=== PATIENT | male | born 1945 | race Two or more races ===

== ENCOUNTER 2016-08-20 17:26 | Emergency (ER) | payer OTHER ==
[~2016-08-20] VITALS: Ht 182.9 cm; Wt 81.6 kg
--- NOTE | 2016-08-20 21:06 | NUR ---
PT OK TO DISCHARGE PER EVELIN BILL OF LADING CLERK. Patient discharged to home in stable condition. Written and verbal after care instructions given. Patient verbalizes understanding of instruction.Patient is awake and alert to self, day, and place. PT ambulatory with a steady gait
[2016-08-20 21:51] VITALS: BP 128/80
== END 2016-08-20 21:10 | disposition home or self-care (01) ==
LOC: ER 17:27
DX: S90.122A Contusion of left lesser toe(s) without damage to nail, initial encounter (principal); M10.9 Gout, unspecified; I10 Essential (primary) hypertension; X58.XXXA Exposure to other specified factors, initial encounter; Y93.89 Activity, other specified; Y92.89 Other specified places as the place of occurrence of the external cause; Y99.9 Unspecified external cause status
CPT/HCPCS: 73630; 99284; A4606; Z7610

== ENCOUNTER 2018-05-08 23:37 | Emergency (ER) | payer OTHER, MEDICAID ==
[~2018-05-08] VITALS: Ht 188 cm; Wt 99.8 kg
--- NOTE | 2018-05-08 23:50 | NUR ---
Note undone in EDM - 05/09/18 at 0035 by POWER PT BIBRA FROM HOME AFTER UNWITNESSED SYNCOPE EPISODE. PER RA, PT WAS FOUND ON FLOOR BY FAMILY. NO VISIBLE TRAUMA NOTED. PT DENIES SOB, CHEST PAIN, ABDOMINAL PAIN, N/V/D. PT IS AAOX3. RESPIRATIONS EVEN AND UNLABORED. SKIN WARM AND INTACT. VITAL SIGNS STABLE. PT PLACED ON CONTINUOUS PRODUCTION CHECKER, WILL CONTINUE TO MONITOR.
--- NOTE | 2018-05-08 23:50 | NUR ---
PT BIBRA FROM HOME AFTER UNWITNESSED SYNCOPE EPISODE. PER RA, PT WAS FOUND ON FLOOR BY FAMILY. NO VISIBLE TRAUMA NOTED. PT DENIES SOB, CHEST PAIN, ABDOMINAL PAIN, N/V/D. PT IS AAOX1. RESPIRATIONS EVEN AND UNLABORED. SKIN WARM AND INTACT. VITAL SIGNS STABLE. PT PLACED ON CONTINUOUS BEAM DEPARTMENT SUPERVISOR, WILL CONTINUE TO MONITOR.
--- NOTE | 2018-05-08 23:58 | NUR ---
EVENT SECURITY OFFICER AT BEDSIDE FOR BLOOD DRAW
[2018-05-09] MEDS ORDERED: IV NS 0.9% 1,000 ML BAG IV ONE
[2018-05-09 00:15] LABS: BASOPHILS % (AUTO) 0.4 % (0.0-2.0); EOSINOPHILS % (AUTO) 2.8 % (0.0-6.0); HEMATOCRIT 46 % (39-51); LYMPHOCYTES # (AUTO) 0.7 /CMM (0.8-4.8); LYMPHOCYTES % (AUTO) 9.3 % (20.0-44.0); MEAN CORPUSCULAR HGB CONC 33 g/dl (31.0-36.0); MEAN CORPUSCULAR VOLUME 90 fL (80-96); MONOCYTES # (AUTO) 0.5 /CMM (0.1-1.30); MONOCYTES % (AUTO) 6.6 % (2.0-12.0); NEUTROPHILS # (AUTO) 6.3 /CMM (1.8-8.9); NEUTROPHILS % (AUTO) 80.9 % (43.0-81.0); PLATELET COUNT (AUTO) 209 /CMM (150-450); RED BLOOD CELL COUNT(AUTO) 5.07 MIL/uL (4.5-6.0); WHITE BLOOD COUNT (AUTO) 7.8 K/uL (4.3-11.0)
--- NOTE | 2018-05-09 00:21 | NUR ---
PT UNABLE TO PROVIDE URINE AT THIS TIME. MD CORBIN
--- NOTE | 2018-05-09 00:24 | NUR ---
PT BROUGHT BY RADIOLOGY FOR CT
[2018-05-09 00:29] LABS: CALCIUM, SERUM 8.5 mg/dL (8.5-10.1); CARBON DIOXIDE 25 mmol/L (21-32); CHLORIDE 105 mmol/L (98-107); CREATININE 1.3 mg/dL (0.6-1.3); GLUCOSE 105 mg/dL (74-106); POTASSIUM 3.8 mmol/L (3.5-5.1); SODIUM SERUM 140 mmol/L (136-145); UREA NITROGEN, BLOOD 17 mg/dL (7-18)
[2018-05-09 00:34] LABS: ALANINE AMINOTRANSFERASE 31 U/L (12-78); ALBUMIN 3.3 g/dL (3.4-5.0); ALKALINE PHOSPHATASE 65 U/L (46-116); ASPARTATE AMINOTRANSFERASE 15 U/L (15-37); BILIRUBIN,DIRECT 0.1 mg/dL (0.0-0.2); TOTAL PROTEIN, SERUM 6.4 g/dL (6.4-8.2)
--- NOTE | 2018-05-09 00:48 | NUR ---
PT RETURNED FROM CT
--- NOTE | 2018-05-09 00:50 | NUR ---
URINE COLLECTED CALLED LAB FOR SAND SYSTEM OPERATOR
[2018-05-09 01:20] LABS: APPEARANCE,URINE CLEAR (CLEAR); BILIRUBIN,URINE NEGATIVE (NEGATIVE); BLOOD, URINE NEGATIVE Ery/uL (NEGATIVE); COLOR,URINE YELLOW (YELLOW); KETONES,URINE NEGATIVE (NEGATIVE); LEUKOCYTE ESTERASE ,URINE NEGATIVE (NEGATIVE); NITRITE, URINE NEGATIVE (NEGATIVE); PROTEIN,URINE TRACE mg/dl (NEGATIVE); UGLUCOSE NEGATIVE (NEGATIVE); UROBILINOGEN,URINE 0.2 EU/dL (0.2)
[2018-05-09 01:27] LABS: BACTERIA,URINE Few /HPF (None Seen); MUCUS,URINE Few /LPF (None Seen); RBC,URINE 0-2 /HPF (0-2); SQUAMOUS EPITHELIAL CELL,UR Rare /HPF (None Seen)
--- NOTE | 2018-05-09 02:03 | NUR ---
RECEIVED CALL FROM [facility] AND WAS INFORMED THAT THIS PT WAS ACCEPTED AT [facility] UNDER DR. HORNE. NUMBER FOR REPORT IS [phone] ETA FOR TRANSPORT: PRN -- [id number]
[2018-05-09 02:20] VITALS: BP 119/72
--- NOTE | 2018-05-09 02:22 | NUR ---
GAVE REPORT TO FILIBERTO BOWLES FOR HAIM
--- NOTE | 2018-05-09 03:14 | NUR ---
GAVE REPORT TO CLAUIDA RODRIGUEZ RN FOR HAIM
== END 2018-05-09 03:28 | disposition short-term general hospital (02) ==
LOC: ER 23:42
DX: R55 Syncope and collapse (principal); I10 Essential (primary) hypertension
CPT/HCPCS: 36415; 70450-TC; 71045-TC; 80048-TC; 80076-TC; 81000-TC; 82962-TC; 84484-TC; 85025-TC; 85730-TC; 86850-TC; A4606; J7030; Z7610

== ENCOUNTER 2018-06-22 19:49 | Emergency (ER) | payer OTHER, MEDICAID ==
[~2018-06-22] VITALS: Ht 188 cm; Wt 95.3 kg
--- NOTE | 2018-06-22 20:00 | NUR ---
[id number] FROM HOME C/O N/V X 1 HOUR. PATIENT BASELINE AAOX1. PT NOTED VOMITTING BLACK CONTENTS WHILE BEING TRIAGED. 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 PT NOTED TO BE INCONTINENT. RR EVEN AND UNLABORED. PT PLACED ON AUTOMATIC PATTERN EDGER AND POX. PT SAFETY AND COMFORT MEASURES IN PLACE. MD BEDSIDE FOR EVAL. BEDSIDE WITH PT.
[2018-06-22] MEDS ORDERED: ONDANSETRON HCL/PF 4 MG/2 ML VIAL ONE (20:22)
[2018-06-22] MEDS ORDERED: HYDROMORPHONE INJ 0.5 MG/0.5 ML SYRINGE ONE (20:23)
[2018-06-22] MEDS ORDERED: IV NS 0.9% 1,000 ML BAG IV ONE (20:30)
[2018-06-22] MEDS ORDERED: ONDANSETRON HCL/PF 4 MG/2 ML VIAL IVP ONE (20:30)
[2018-06-22] MEDS ORDERED: HYDROMORPHONE INJ 2 MG/ML DISP.SYRIN IV ONE (20:30)
[2018-06-22 20:50] LABS: BASOPHILS % (AUTO) 0.1 % (0.0-2.0); EOSINOPHILS % (AUTO) 0.1 % (0.0-6.0); HEMATOCRIT 43 % (39-51); HEMOGLOBIN 14.2 g/dL (13.5-17.5); LYMPHOCYTES # (AUTO) 0.1 /CMM (0.8-4.8); LYMPHOCYTES % (AUTO) 1.9 % (20.0-44.0); MEAN CORPUSCULAR HGB CONC 33 g/dl (31.0-36.0); MEAN CORPUSCULAR VOLUME 90 fL (80-96); MONOCYTES % (AUTO) 0.6 % (2.0-12.0); NEUTROPHILS # (AUTO) 4.2 /CMM (1.8-8.9); NEUTROPHILS % (AUTO) 97.3 % (43.0-81.0); PLATELET COUNT (AUTO) 201 /CMM (150-450); RED BLOOD CELL COUNT(AUTO) 4.74 MIL/uL (4.5-6.0); WHITE BLOOD COUNT (AUTO) 4.3 K/uL (4.3-11.0)
[2018-06-22 20:52] LABS: APPEARANCE,URINE Slightly Cloudy (CLEAR); BILIRUBIN,URINE Negative (NEGATIVE); BLOOD, URINE Large Ery/uL (NEGATIVE); COLOR,URINE Yellow (YELLOW); KETONES,URINE Trace (NEGATIVE); LEUKOCYTE ESTERASE ,URINE Small (NEGATIVE); NITRITE, URINE Positive (NEGATIVE); PH,URINE 5.5 (5.0-8.0); PROTEIN,URINE 30 mg/dl (NEGATIVE); UGLUCOSE Negative (NEGATIVE); UROBILINOGEN,URINE 0.2 EU/dL (0.2)
[2018-06-22 21:01] LABS: CALCIUM, SERUM 8.8 mg/dL (8.5-10.1); CARBON DIOXIDE 19 mmol/L (21-32); CHLORIDE 104 mmol/L (98-107); CREATININE 1.9 mg/dL (0.6-1.3); GLUCOSE 146 mg/dL (74-106); POTASSIUM 3.6 mmol/L (3.5-5.1); SODIUM SERUM 136 mmol/L (136-145); UREA NITROGEN, BLOOD 19 mg/dL (7-18)
[2018-06-22 21:04] LABS: BACTERIA,URINE 3+ /HPF (None Seen); RBC,URINE 21-50 /HPF (0-2); SQUAMOUS EPITHELIAL CELL,UR Few /HPF (None Seen)
[2018-06-22 21:07] LABS: ALANINE AMINOTRANSFERASE 24 U/L (12-78); ALBUMIN 3.3 g/dL (3.4-5.0); ALKALINE PHOSPHATASE 63 U/L (46-116); ASPARTATE AMINOTRANSFERASE 21 U/L (15-37); BILIRUBIN,DIRECT 0.2 mg/dL (0.0-0.2); BILIRUBIN,TOTAL 1.6 mg/dL (0.2-1.0); LIPASE 132 U/L (73-393); TOTAL PROTEIN, SERUM 6.4 g/dL (6.4-8.2)
--- NOTE | 2018-06-22 21:09 | NUR ---
PT TO CT
--- NOTE | 2018-06-22 21:20 | NUR ---
PT BACK FROM CT
[2018-06-22] MEDS ORDERED: PIPERACILLIN /TAZOBACTAM 3.375 G in IV D5W 50 ML IV ONE (21:30)
[2018-06-22] MEDS ORDERED: PIPERACILLIN /TAZOBACTAM 3.375 G VIAL IV ONE (21:42)
--- NOTE | 2018-06-22 21:58 | NUR ---
CALLED [facility] FOR TRANSFER
--- NOTE | 2018-06-22 23:05 | NUR ---
Patient is resting comfortably in bed with eyes closed. Easily aroused. VSS
[2018-06-22] MEDS ORDERED: KETOROLAC TROMETHAMINE 15 MG/ML VIAL ONE (23:41)
--- NOTE | 2018-06-22 23:44 | NUR ---
VERBAL ORDER RECEIVED BY DR. MALIN FOR TORADOL 15MG IVP NOW.
--- NOTE | 2018-06-22 23:53 | NUR ---
PT ACCEPTED TO [facility] BY DR RIOS ROOM 4303-A ALS NAFISA [id number] # FOR REPORT: [phone]
--- NOTE | 2018-06-22 23:58 | NUR ---
REPORT GIVEN TO [facility] WILBUR FERRER FOR [facility]IM
--- NOTE | 2018-06-23 00:31 | NUR ---
REPORT GIVEN TO EMS CREW FOR [facility]IM. PT BEING LOADED ONTO [employer] Sp[facility] W/ NO S/S OF DISTRESS NOTED.
[2018-06-23 00:32] VITALS: BP 119/67
--- NOTE | 2018-06-23 00:36 | NUR ---
Patient Tranfers to outside Facility Physician:BLANCA Location:[facility], ROOM 4303-A REPORT GIVEN TO WILBUR FERRER FOR HAIM
== END 2018-06-23 00:36 | disposition short-term general hospital (02) ==
LOC: ER 19:50
DX: N13.2 Hydronephrosis with renal and ureteral calculous obstruction (principal); N28.9 Disorder of kidney and ureter, unspecified; I10 Essential (primary) hypertension; G30.9 Alzheimer's disease, unspecified; F02.80 Dementia in other diseases classified elsewhere, unspecified severity, without behavioral disturbance, psychotic disturbance, mood disturbance, and anxiety
CPT/HCPCS: 36415; 71045-TC; 80048-TC; 80076-TC; 81000-TC; 83690-TC; 85025-TC; 85730-TC; 87086-TC; 87186-TC; J1885; J2405; J2543; J7030; J7060

== ENCOUNTER 2018-07-29 22:59 | Emergency (ER) | payer OTHER, MEDICAID ==
[~2018-07-29] VITALS: Ht 172.7 cm; Wt 83.9 kg
--- NOTE | 2018-07-29 23:20 | NUR ---
PT BIBRA FROM HOME S/P [facility]. PER , PT WAS SITTING ON EDGE OF BED FROM ABDOMINAL PAIN AND FELL OVER. UNSURE KO. PT DENIES SOB, CHEST PAIN, N/V/D, HEADACHE. PT AAOX1. RESPIRATIONS EVEN AND UNLABORED. SKIN INTACT. VITAL SIGNS STABLE. NO ACUTE DISTRESS NOTED AT THIS TIME. PLACED IN GOWN AND ON MONITOR
--- NOTE | 2018-07-29 23:35 | NUR ---
MD AT BEDSIDE FOR EVALUATION
--- NOTE | 2018-07-30 00:30 | NUR ---
URINE COLLECTED AND SENT TO LAB
[2018-07-30 00:35] LABS: APPEARANCE,URINE Cloudy (CLEAR); BILIRUBIN,URINE Negative (NEGATIVE); BLOOD, URINE Large Ery/uL (NEGATIVE); COLOR,URINE Yellow (YELLOW); KETONES,URINE Negative (NEGATIVE); LEUKOCYTE ESTERASE ,URINE Large (NEGATIVE); NITRITE, URINE Negative (NEGATIVE); PROTEIN,URINE >=300 mg/dl (NEGATIVE); UGLUCOSE Negative (NEGATIVE); UROBILINOGEN,URINE 0.2 EU/dL (0.2)
[2018-07-30 00:52] LABS: BACTERIA,URINE 4+ /HPF (None Seen); RBC,URINE 21-50 /HPF (0-2); SQUAMOUS EPITHELIAL CELL,UR Few /HPF (None Seen); WBC,URINE 81-100 /HPF (0-3)
[2018-07-30] MEDS ORDERED: CIPROFLOXACIN HCL 500 MG TABLET ONE (01:05)
--- NOTE | 2018-07-30 01:25 | NUR ---
Patient discharged to home in stable condition. Written and verbal after care instructions given. Patient verbalizes understanding of instruction. Pt ambulatory with a steady gait, left with
[2018-07-30 01:26] VITALS: BP 134/79
[2018-07-30] MEDS ORDERED: CIPROFLOXACIN HCL 500 MG TABLET PO ONE (01:30)
[2018-07-30] MEDS ORDERED: AMLO2.5T4 PO (15:49)
[2018-07-30] MEDS ORDERED: QUET25TA PO (15:49)
[2018-07-30] MEDS ORDERED: DONE5TAB34 PO (15:49)
[2018-07-30] MEDS ORDERED: ATOR20TA PO (15:49)
[2018-07-30] MEDS ORDERED: TRAZ-214 PO (15:49)
[2018-07-30] MEDS ORDERED: CIPR500T5 PO (15:49)
== END 2018-07-30 01:27 | disposition home or self-care (01) ==
LOC: ER 23:00
DX: N39.0 Urinary tract infection, site not specified (principal); G30.9 Alzheimer's disease, unspecified; I10 Essential (primary) hypertension; Z87.442 Personal history of urinary calculi
CPT/HCPCS: 81001; 87077; 87086; 87186; 99283; A4606; 81000-TC

== ENCOUNTER 2018-07-30 14:21 | Emergency (ER) | payer OTHER, MEDICAID ==
[~2018-07-30] VITALS: Ht 172.7 cm; Wt 84.4 kg
--- NOTE | 2018-07-30 14:32 | NUR ---
DR MCGREGOR AT BEDSIDE
[2018-07-30] MEDS ORDERED: HALOPERIDOL LACTATE INJ 5 MG/ML VIAL ONE (14:34)
[2018-07-30] MEDS ORDERED: HALOPERIDOL LACTATE INJ 5 MG/ML VIAL IM ONE (15:00)
[2018-07-30 15:14] LABS: BASOPHILS % (AUTO) 0.4 % (0.0-2.0); EOSINOPHILS % (AUTO) 1.6 % (0.0-6.0); HEMATOCRIT 37 % (39-51); HEMOGLOBIN 12.4 g/dL (13.5-17.5); LYMPHOCYTES # (AUTO) 0.8 /CMM (0.8-4.8); LYMPHOCYTES % (AUTO) 7.9 % (20.0-44.0); MEAN CORPUSCULAR HGB CONC 33 g/dl (31.0-36.0); MEAN CORPUSCULAR VOLUME 89 fL (80-96); MONOCYTES # (AUTO) 0.9 /CMM (0.1-1.30); MONOCYTES % (AUTO) 8.7 % (2.0-12.0); NEUTROPHILS # (AUTO) 8.4 /CMM (1.8-8.9); NEUTROPHILS % (AUTO) 81.4 % (43.0-81.0); PLATELET COUNT (AUTO) 282 /CMM (150-450); WHITE BLOOD COUNT (AUTO) 10.4 K/uL (4.3-11.0)
[2018-07-30 15:19] LABS: CALCIUM, SERUM 8.6 mg/dL (8.5-10.1); CARBON DIOXIDE 22 mmol/L (21-32); CHLORIDE 104 mmol/L (98-107); CREATININE 1.3 mg/dL (0.6-1.3); GLUCOSE 102 mg/dL (74-106); POTASSIUM 3.6 mmol/L (3.5-5.1); SODIUM SERUM 136 mmol/L (136-145); UREA NITROGEN, BLOOD 19 mg/dL (7-18)
[2018-07-30 15:25] LABS: ALANINE AMINOTRANSFERASE 21 U/L (12-78); ALBUMIN 2.8 g/dL (3.4-5.0); ALKALINE PHOSPHATASE 63 U/L (46-116); ASPARTATE AMINOTRANSFERASE 18 U/L (15-37); BILIRUBIN,DIRECT 0.3 mg/dL (0.0-0.2); BILIRUBIN,TOTAL 2.1 mg/dL (0.2-1.0); LIPASE 138 U/L (73-393); TOTAL PROTEIN, SERUM 6.9 g/dL (6.4-8.2)
[2018-07-30] MEDS ORDERED: QUET25TA PO (15:49)
[2018-07-30] MEDS ORDERED: DONE5TAB34 PO (15:49)
[2018-07-30] MEDS ORDERED: AMLO2.5T4 PO (15:49)
[2018-07-30] MEDS ORDERED: TRAZ-214 PO (15:49)
[2018-07-30] MEDS ORDERED: ATOR20TA PO (15:49)
[2018-07-30] MEDS ORDERED: CIPR500T5 PO (15:49)
--- NOTE | 2018-07-30 16:30 | NUR ---
CALLED [facility], PRESENTED PT, AWAITING CALLBACK FROM [facility]
--- NOTE | 2018-07-30 17:54 | NUR ---
CALLED FOR FOOD TRAY
--- NOTE | 2018-07-30 18:24 | NUR ---
RECEIVED CALL FROM [facility]. PT ACCEPTED TO [facility] BY DR. Natalie ATWOOD, ROOM 4304, NUMBER TO GIVE REPORT IS [phone]
--- NOTE | 2018-07-30 19:23 | NUR ---
REPORT GIVEN TO HUNTER JARRETT AT [facility] FOR [facility]
--- NOTE | 2018-07-30 19:25 | NUR ---
PT LEFT VIA [facility]ANCE ARRANGED BY [place]; PT LEFT IN STABLE CONDTION; VSS, NAD NOTED.
[2018-07-30 19:27] VITALS: BP 130/75
== END 2018-07-30 19:29 | disposition short-term general hospital (02) ==
LOC: ER 14:24
DX: N39.0 Urinary tract infection, site not specified (principal); R45.1 Restlessness and agitation; J90 Pleural effusion, not elsewhere classified; I10 Essential (primary) hypertension; G30.9 Alzheimer's disease, unspecified; F02.80 Dementia in other diseases classified elsewhere, unspecified severity, without behavioral disturbance, psychotic disturbance, mood disturbance, and anxiety; R94.31 Abnormal electrocardiogram [ECG] [EKG]; Z87.442 Personal history of urinary calculi
CPT/HCPCS: 36415; 70450; 71045; 74176; 80048; 80076; 83690; 84484; 85025; 85730; 87040; 93005; 96372; 99285; A4606; J1630

== ENCOUNTER 2018-08-21 04:48 | Emergency (ER) | payer OTHER, MEDICAID ==
[~2018-08-21] VITALS: Ht 172.7 cm; Wt 88.9 kg
[~2018-08-21 04:48] MED LIST: AMLO2.5T4 PO; ATOR20TA PO; CIPR500T5 PO; DONE5TAB34 PO; QUET25TA PO; TRAZ-214 PO
--- NOTE | 2018-08-21 04:56 | NUR ---
PT BIBRA FROM HOME C/O FEVER X2 DAYS. UNKNOWN TMAX. +NONPRODUCTIVE COUGH. RECENTLY FINISHED 2WEEK COURSE OF ANTIBIOTIC FOR PNA AND UTI X1 WEEK AGO. NAD NOTED. RESP EVEN AND UNLABORED. PT DENIES PAIN AT THIS TIME. AT BEDSIDE. PT ON MONITOR IN BED 10. WILL CONTINUE TO MONITOR.
[2018-08-21 05:00] VITALS: BP 128/73
--- NOTE | 2018-08-21 05:12 | NUR ---
RADIOLOGY AT BEDSIDE FOR CXR
--- NOTE | 2018-08-21 05:22 | NUR ---
URINE COLLECTED AND SENT TO LAB
[2018-08-21 05:27] LABS: APPEARANCE,URINE Clear (CLEAR); BILIRUBIN,URINE Negative (NEGATIVE); BLOOD, URINE Moderate Ery/uL (NEGATIVE); COLOR,URINE Yellow (YELLOW); KETONES,URINE Negative (NEGATIVE); LEUKOCYTE ESTERASE ,URINE Trace (NEGATIVE); NITRITE, URINE Negative (NEGATIVE); PH,URINE 5.5 (5.0-8.0); PROTEIN,URINE 30 mg/dl (NEGATIVE); UGLUCOSE Negative (NEGATIVE); UROBILINOGEN,URINE 0.2 EU/dL (0.2)
[2018-08-21 05:45] LABS: BACTERIA,URINE Few /HPF (None Seen); RBC,URINE TOO NUMEROUS TO COUN /HPF (0-2); SQUAMOUS EPITHELIAL CELL,UR Rare /HPF (None Seen); WBC,URINE TOO NUMEROUS TO COUN /HPF (0-3)
--- NOTE | 2018-08-21 05:45 | NUR ---
Patient discharged to home in stable condition. Written and verbal after care instructions given. Patient verbalizes understanding of instruction. PT AMBULATORY WITH STEADY GAIT ACCOMPANIED BY .
== END 2018-08-21 07:25 | disposition home or self-care (01) ==
LOC: ER 04:48
DX: R05 Cough (principal); G30.9 Alzheimer's disease, unspecified; I10 Essential (primary) hypertension; Z87.442 Personal history of urinary calculi
CPT/HCPCS: 71045-TC; 81000-TC; 87086-TC

== ENCOUNTER 2019-04-18 08:03 | Emergency (ER) | payer OTHER, MEDICAID ==
[~2019-04-18] VITALS: Ht 185.4 cm; Wt 103.9 kg
--- NOTE | 2019-04-18 08:05 | NUR ---
BIBRA 887 FROM HOME C/O GEN WEAKNESS, UNWITNESSED GLF. LAST KNOWN WELL IS 1AM, PT IS AAOX2, NOT IN RESPIRATORY DISTRESS, HOOKED TO MONITOR, KEPT RESTED AND COMFORTABLE, WILL CONTINUE TO MONITOR.
--- NOTE | 2019-04-18 08:10 | NUR ---
SEEN AND EXAMINED BY .
[2019-04-18] MEDS ORDERED: IOHEXOL-350 100 ML VIAL IV ONE (08:15)
[2019-04-18] MEDS ORDERED: CT SWABBABLE VALVE TRANS SET 1 EA INFUS.SET MC ONE (08:15)
[2019-04-18] MEDS ORDERED: IV NS 0.9% 250 ML IV ONE (08:15)
--- NOTE | 2019-04-18 08:15 | NUR ---
IV LINE ESTABLISHED, G18 R AC.
--- NOTE | 2019-04-18 08:16 | NUR ---
PT IS WHEELED TO CT SCAN VIA [facility].
--- NOTE | 2019-04-18 08:17 | NUR ---
CODE STROKE ACTIVATED BY DR. CASTILLO [facility] NOTIFIED DR. CALL TELENEUROLOGIST WILL CALL BACK
--- NOTE | 2019-04-18 08:35 | NUR ---
PT IS BACK FROM THE CT SCAN.
--- NOTE | 2019-04-18 08:40 | NUR ---
ER PHLEB AT BEDSIDE FOR BLOOD DRAW.
[2019-04-18 08:52] LABS: BASOPHILS % (AUTO) 0.5 % (0.0-2.0); EOSINOPHILS % (AUTO) 4.8 % (0.0-6.0); HEMATOCRIT 41 % (39-51); HEMOGLOBIN 13.8 g/dL (13.5-17.5); LYMPHOCYTES % (AUTO) 19.7 % (20.0-44.0); MEAN CORPUSCULAR HGB CONC 33 g/dl (31.0-36.0); MEAN CORPUSCULAR VOLUME 89 fL (80-96); MONOCYTES # (AUTO) 0.6 /CMM (0.1-1.30); MONOCYTES % (AUTO) 10.6 % (2.0-12.0); NEUTROPHILS # (AUTO) 3.4 /CMM (1.8-8.9); NEUTROPHILS % (AUTO) 64.4 % (43.0-81.0); PLATELET COUNT (AUTO) 181 /CMM (150-450); RED BLOOD CELL COUNT(AUTO) 4.66 MIL/uL (4.5-6.0); WHITE BLOOD COUNT (AUTO) 5.2 K/uL (4.3-11.0)
[2019-04-18] MEDS ORDERED: DEXTROSE 50%-WATER 50 ML DISP.SYRIN IVP ONE (09:00)
[2019-04-18 09:01] LABS: CALCIUM, SERUM 8.6 mg/dL (8.5-10.1); CARBON DIOXIDE 26 mmol/L (21-32); CHLORIDE 107 mmol/L (98-107); CREATININE 1.4 mg/dL (0.6-1.3); GLUCOSE 86 mg/dL (74-106); POTASSIUM 4.2 mmol/L (3.5-5.1); SODIUM SERUM 139 mmol/L (136-145); UREA NITROGEN, BLOOD 17 mg/dL (7-18)
[2019-04-18 09:08] LABS: ALANINE AMINOTRANSFERASE 27 U/L (12-78); ALKALINE PHOSPHATASE 48 U/L (46-116); ASPARTATE AMINOTRANSFERASE 30 U/L (15-37); BILIRUBIN,DIRECT 0.2 mg/dL (0.0-0.2); BILIRUBIN,TOTAL 1.5 mg/dL (0.2-1.0); TOTAL PROTEIN, SERUM 5.9 g/dL (6.4-8.2)
[2019-04-18] MEDS ORDERED: DEXTROSE 50%-WATER 50 ML DISP.SYRIN ONE (09:11)
--- NOTE | 2019-04-18 09:16 | NUR ---
CALLED [facility] TO PRESENT PT FOR TRANSFER [facility] DELGADILLO WILL CALL BACK
[2019-04-18] MEDS ORDERED: QUET25TA PO (09:18)
[2019-04-18] MEDS ORDERED: ACET-868 PO (09:18)
[2019-04-18] MEDS ORDERED: DIVA125C5 PO (09:18)
[2019-04-18] MEDS ORDERED: IV NS 0.9% 1,000 ML BAG IV ONE (09:30)
--- NOTE | 2019-04-18 09:36 | NUR ---
URINE SPECIMEN COLLECTED VIA STRAIGHT CATH AND SENT TO LAB.
--- NOTE | 2019-04-18 09:41 | NUR ---
PT ACCEPTED BY DR. DURON AT [facility] NUMBER FOR REPORT IS [phone] ALS TRANSPORT ETA [phone]
[2019-04-18 09:43] LABS: CHOLESTEROL 206 mg/dL (<200); HDL CHOLESTEROL 32 mg/dL (40-60); LDL 150 mg/dL (0-99); TRIGLYCERIDES 119 mg/dL (30-150)
[2019-04-18 09:48] LABS: APPEARANCE,URINE Clear (CLEAR); BILIRUBIN,URINE Negative (NEGATIVE); COLOR,URINE Yellow (YELLOW); KETONES,URINE Negative (NEGATIVE); LEUKOCYTE ESTERASE ,URINE Negative (NEGATIVE); NITRITE, URINE Negative (NEGATIVE); PH,URINE 5.5 (5.0-8.0); PROTEIN,URINE Negative (NEGATIVE); UGLUCOSE Negative (NEGATIVE); UROBILINOGEN,URINE 0.2 EU/dL (0.2)
--- NOTE | 2019-04-18 10:21 | NUR ---
REPORT GIVEN TO WILBUR DEL CASTILLO [facility] FOR [facility].
[2019-04-18 10:23] VITALS: BP 158/85
--- NOTE | 2019-04-18 10:23 | NUR ---
REPORT GIVEN TO EMT FOR PT TRANSFER TO [facility].
[2019-04-18 10:25] LABS: BLOOD, URINE NEGATIVE Ery/uL (NEGATIVE)
[2019-04-18] MEDS ORDERED: ASPIRIN 81 MG TAB.CHEW ONE (10:36)
[2019-04-18] MEDS ORDERED: ASPIRIN 81 MG TAB.CHEW PO ONE (11:00)
== END 2019-04-18 10:43 | disposition short-term general hospital (02) ==
LOC: ER 08:03
DX: R41.82 Altered mental status, unspecified (principal); G30.9 Alzheimer's disease, unspecified; F02.80 Dementia in other diseases classified elsewhere, unspecified severity, without behavioral disturbance, psychotic disturbance, mood disturbance, and anxiety; I10 Essential (primary) hypertension; Z87.442 Personal history of urinary calculi; Z79.899 Other long term (current) drug therapy; W19.XXXA Unspecified fall, initial encounter; Y93.89 Activity, other specified; Y92.89 Other specified places as the place of occurrence of the external cause; Y99.8 Other external cause status
CPT/HCPCS: 36415; 70450; 70496; 70498; 71045; 80048; 80061; 80076; 80305; 81001; 82962 ×2; 83605; 84484; 85025; 85730; 87040 ×2; 93005; 96361; 96374; 99285; J7030; J7050; Q9967; 81000-TC